=== PATIENT | female | born 1960 | race Caucasian/White ===

== ENCOUNTER → 2024-03-29 13:31 | Outpatient (REF) | payer BC, SELFPAY | LOC: WDC 13:31 | PROVIDERS: ATTENDING PHYSICIAN Family Medicine | DX: Z12.31 Encounter for screening mammogram for malignant neoplasm of breast (principal) | CPT/HCPCS: 77063; 77067 ==

== ENCOUNTER 2024-08-05 06:23 | Day surgery (SDC) | payer BC, SELFPAY | END 2024-08-05 11:27 | disposition home or self-care (01) | LOC: GI 06:23 | PROVIDERS: ATTENDING PHYSICIAN Internal Medicine Gastroenterology | DX: Z12.11 Encounter for screening for malignant neoplasm of colon (principal); K52.9 Noninfective gastroenteritis and colitis, unspecified; K63.89 Other specified diseases of intestine; K57.30 Diverticulosis of large intestine without perforation or abscess without bleeding; Z86.0100 Personal history of colon polyps, unspecified | CPT/HCPCS: 45380; 88305 ==